=== PATIENT | female | born 1995 | race Caucasian/White ===

== ENCOUNTER 2021-09-02 23:41 | Emergency (ER) | payer BC ==
[2021-09-03 00:06] VITALS: BP 123/84; PULSE 82
[2021-09-03] MEDS: Amoxicillin 500 MG Cap PO ONE (01:01)
[2021-09-03] MEDS: Acetaminophen/HYDROcodone 325-5 MG Tab PO ONE (01:01)
== END 2021-09-03 01:09 | disposition home or self-care (01) ==
LOC: JD.ED 23:41
DX: K02.9 Dental caries, unspecified (principal)
CPT/HCPCS: 99282; A9270; 99283

== ENCOUNTER 2021-09-10 13:51 | Emergency (ER) | payer SELFPAY ==
[2021-09-10 14:35] VITALS: BP 125/69; PULSE 94
[2021-09-10] MEDS ORDERED: Ketorolac 30 MG/ML SDV IVPUSH ONE (15:07)
[2021-09-10] MEDS ORDERED: diphenhydrAMINE 50 MG/ML SDV IVPUSH ONE (15:07)
[2021-09-10] MEDS ORDERED: Metoclopramide 10 MG/2 ML SDV IVPUSH ONE (15:07)
[2021-09-10] MEDS ORDERED: Sodium Chloride 0.9% 1,000 ML IV ONE (15:07)
[2021-09-10] MEDS ORDERED: Penicillin V Potassium 500 MG Tab PO STA (16:37)
== END 2021-09-10 17:55 | disposition home or self-care (01) ==
LOC: JD.ED 13:51
DX: G43.909 Migraine, unspecified, not intractable, without status migrainosus (principal); K02.9 Dental caries, unspecified
CPT/HCPCS: 96361; 96374; 96375; 99283; A9270; J1200; J1885; J2765; J7030

== ENCOUNTER 2021-09-29 07:06 | Emergency (ER) | payer OTHER ==
[2021-09-29 07:15] VITALS: BP 123/86; PULSE 68
[2021-09-29] MEDS ORDERED: Lidocaine 1% 10 ML MDV ONE (07:28)
[2021-09-29] MEDS ORDERED: Lidocaine 1% 10 ML MDV INJECT ONE (07:36)
[2021-09-29] MEDS ORDERED: Diphtheria,Pertussis(Acell),Tetanus Vaccine 0.5 ML Syringe IM ONE (07:36)
== END 2021-09-29 08:03 | disposition home or self-care (01) ==
LOC: JD.ED 07:06
DX: S61.412A Laceration without foreign body of left hand, initial encounter (principal); F17.210 Nicotine dependence, cigarettes, uncomplicated; Z23 Encounter for immunization; W26.8XXA Contact with other sharp object(s), not elsewhere classified, initial encounter; Y99.0 Civilian activity done for income or pay
CPT/HCPCS: 12001; 90471; 90715; 99282-25

== ENCOUNTER 2021-10-03 06:52 | Emergency (ER) | payer BC, OTHER ==
[2021-10-03 07:39] VITALS: BP 114/73; PULSE 73
== END 2021-10-03 08:35 | disposition home or self-care (01) ==
LOC: JD.ED 06:52
DX: K02.9 Dental caries, unspecified (principal); K00.7 Teething syndrome
CPT/HCPCS: 99282; 99283

== ENCOUNTER 2021-10-06 05:17 | Emergency (ER) | payer BC ==
[2021-10-06 05:30] VITALS: BP 120/90; PULSE 85
[2021-10-06] MEDS ORDERED: Ondansetron 4 MG Tab.DIS PO ONE (05:57)
== END 2021-10-06 07:04 | disposition home or self-care (01) ==
LOC: JD.ED 05:17
DX: K02.9 Dental caries, unspecified (principal); R11.2 Nausea with vomiting, unspecified; F17.210 Nicotine dependence, cigarettes, uncomplicated; Z79.899 Other long term (current) drug therapy; Z86.16 Personal history of COVID-19
CPT/HCPCS: 99283; A9270; 99282

== ENCOUNTER 2021-10-08 17:20 | Emergency (ER) | payer SELFPAY ==
[2021-10-08 18:12] VITALS: BP 121/77; PULSE 70
[2021-10-08] MEDS ORDERED: HYDROmorphone 1 MG/ML Syringe IM ONE (18:26)
== END 2021-10-08 18:50 | disposition home or self-care (01) ==
LOC: JD.ED 17:20
DX: K02.62 Dental caries on smooth surface penetrating into dentin (principal); F17.210 Nicotine dependence, cigarettes, uncomplicated; Z88.8 Allergy status to other drugs, medicaments and biological substances; Z79.899 Other long term (current) drug therapy; Z86.16 Personal history of COVID-19
CPT/HCPCS: 96372; 99282; J1170

== ENCOUNTER 2021-12-04 19:36 | Emergency (ER) | payer SELFPAY ==
[2021-12-04 19:58] VITALS: BP 128/75; PULSE 81
[2021-12-04] MEDS ORDERED: Orphenadrine 100 MG Tab.ER PO STA (20:29)
[2021-12-04] MEDS ORDERED: Ibuprofen 600 MG Tab PO ONE (20:29)
== END 2021-12-04 20:50 | disposition home or self-care (01) ==
LOC: JD.ED 19:36
DX: M62.830 Muscle spasm of back (principal); F17.210 Nicotine dependence, cigarettes, uncomplicated; Z88.8 Allergy status to other drugs, medicaments and biological substances; Z86.16 Personal history of COVID-19
CPT/HCPCS: 99283; A9270

== ENCOUNTER 2021-12-20 06:59 | Emergency (ER) | payer BC ==
[2021-12-20] MEDS ORDERED: HYDROmorphone 1 MG/ML Syringe IM ONE (08:05)
[2021-12-20] MEDS ORDERED: Promethazine 25 MG/ML SDV IM ONE (08:06)
[2021-12-20 08:38] VITALS: BP 133/80; PULSE 72
== END 2021-12-20 09:45 | disposition home or self-care (01) ==
LOC: JD.ED 06:59
DX: K04.7 Periapical abscess without sinus (principal); Z72.0 Tobacco use; Z88.8 Allergy status to other drugs, medicaments and biological substances; Z86.16 Personal history of COVID-19
CPT/HCPCS: 96372; 99282; J1170; J2550

== ENCOUNTER 2021-12-22 02:02 | Emergency (ER) | payer BC ==
[2021-12-22 02:12] VITALS: BP 147/89; PULSE 74
[2021-12-22] MEDS ORDERED: Bupivacaine 0.25%/EPINEPHrine 1:200,000 10 ML SDV INJECT ONE (02:57)
[2021-12-22] MEDS ORDERED: Bupivacaine 0.5% 10 ML SDV ONE (03:03)
[2021-12-22] MEDS ORDERED: Bupivacaine 0.5% 10 ML SDV INJECT ONE (03:12)
== END 2021-12-22 04:05 | disposition home or self-care (01) ==
LOC: JD.ED 02:02
DX: K08.89 Other specified disorders of teeth and supporting structures (principal); Z88.8 Allergy status to other drugs, medicaments and biological substances; Z86.16 Personal history of COVID-19
CPT/HCPCS: 64400; 99282-25; J3490

== ENCOUNTER 2022-02-28 16:59 | Emergency (ER) | payer BC ==
[2022-02-28] MEDS ORDERED: Lidocaine 1% 5 ML VIAL INJECT ONE (17:37)
[2022-02-28] MEDS ORDERED: Lidocaine 1% 10 ML MDV ONE (17:40)
[2022-02-28] MEDS ORDERED: Lidocaine 1% 10 ML MDV INJECT ONE (17:43)
[2022-02-28 18:39] VITALS: BP 121/75; PULSE 62
== END 2022-02-28 18:15 | disposition home or self-care (01) ==
LOC: JD.ED 16:59
DX: K04.7 Periapical abscess without sinus (principal); K02.9 Dental caries, unspecified; F17.210 Nicotine dependence, cigarettes, uncomplicated; Z88.8 Allergy status to other drugs, medicaments and biological substances; Z86.16 Personal history of COVID-19
CPT/HCPCS: 64400; 99282-25; J3490

== ENCOUNTER 2022-03-01 16:10 | Emergency (ER) | payer BC ==
[2022-03-01 16:39] VITALS: BP 125/77; PULSE 63
[2022-03-01] MEDS ORDERED: HYDROmorphone 1 MG/ML Syringe IM ONE (17:18)
== END 2022-03-01 17:54 | disposition home or self-care (01) ==
LOC: JD.ED 16:10
DX: K08.89 Other specified disorders of teeth and supporting structures (principal); F17.210 Nicotine dependence, cigarettes, uncomplicated; Z88.8 Allergy status to other drugs, medicaments and biological substances; Z86.16 Personal history of COVID-19
CPT/HCPCS: 96372; 99282; J1170

== ENCOUNTER 2022-03-21 14:36 | Emergency (ER) | payer SELFPAY ==
[2022-03-21 14:54] VITALS: BP 119/66; PULSE 78
[2022-03-21] MEDS ORDERED: Cyclobenzaprine 10 MG Tab PO ONE (15:24)
== END 2022-03-21 15:36 | disposition home or self-care (01) ==
LOC: JD.ED 14:36
DX: M62.830 Muscle spasm of back (principal); Z86.16 Personal history of COVID-19; Z88.8 Allergy status to other drugs, medicaments and biological substances; W00.0XXA Fall on same level due to ice and snow, initial encounter
CPT/HCPCS: 99283; A9270

== ENCOUNTER 2022-03-23 20:20 | Emergency (ER) | payer SELFPAY ==
[2022-03-23 20:38] VITALS: BP 136/79; PULSE 78
[2022-03-23] MEDS ORDERED: HYDROmorphone 1 MG/ML Syringe IM ONE (20:43)
== END 2022-03-23 21:30 | disposition home or self-care (01) ==
LOC: JD.ED 20:20
DX: K08.89 Other specified disorders of teeth and supporting structures (principal); F17.210 Nicotine dependence, cigarettes, uncomplicated; Z88.8 Allergy status to other drugs, medicaments and biological substances; Z86.16 Personal history of COVID-19
CPT/HCPCS: 96372; 99282; J1170

== ENCOUNTER 2022-03-25 17:25 | Emergency (ER) | payer SELFPAY ==
[2022-03-25 17:33] VITALS: BP 139/75; PULSE 70
[2022-03-25] MEDS ORDERED: HYDROmorphone 1 MG/ML Syringe IM ONE (18:18)
[2022-03-25] MEDS ORDERED: Promethazine 25 MG/ML SDV IM ONE (18:18)
== END 2022-03-25 19:20 | disposition home or self-care (01) ==
LOC: JD.ED 17:25
DX: K08.89 Other specified disorders of teeth and supporting structures (principal); Z88.8 Allergy status to other drugs, medicaments and biological substances; Z86.16 Personal history of COVID-19
CPT/HCPCS: 96372; 99282; J1170; J2550

== ENCOUNTER 2022-04-14 00:53 | Emergency (ER) | payer SELFPAY ==
[2022-04-14] MEDS ORDERED: Amoxicillin/Clavulanate K 500-125 MG Tab PO ONE (01:44)
[2022-04-14] MEDS ORDERED: Ondansetron 4 MG Tab.DIS PO ONE (01:44)
[2022-04-14] MEDS ORDERED: Acetaminophen/oxyCODONE 325-5 MG Tab PO ONE (01:44)
[2022-04-14 02:24] VITALS: BP 109/71; PULSE 90
== END 2022-04-14 02:22 | disposition home or self-care (01) ==
LOC: JD.ED 00:53
DX: K02.9 Dental caries, unspecified (principal); Z72.0 Tobacco use; Z88.8 Allergy status to other drugs, medicaments and biological substances; Z79.899 Other long term (current) drug therapy
CPT/HCPCS: 99282; A9270

== ENCOUNTER 2022-04-15 12:23 | Emergency (ER) | payer SELFPAY ==
[2022-04-15] MEDS ORDERED: Metoclopramide 10 MG/2 ML SDV IM ONE (14:17)
[2022-04-15] MEDS ORDERED: Ketorolac 60 MG/2 ML SDV IM ONE (14:17)
[2022-04-15] MEDS ORDERED: HYDROmorphone 1 MG/ML Syringe IM ONE (14:17)
[2022-04-15] MEDS ORDERED: diphenhydrAMINE 50 MG/ML SDV IM ONE (14:18)
[2022-04-15 14:40] VITALS: BP 113/61; PULSE 60
== END 2022-04-15 14:40 | disposition home or self-care (01) ==
LOC: JD.ED 12:23
DX: K02.9 Dental caries, unspecified (principal); G43.909 Migraine, unspecified, not intractable, without status migrainosus; K00.7 Teething syndrome; Z72.0 Tobacco use; Z86.16 Personal history of COVID-19; Z88.8 Allergy status to other drugs, medicaments and biological substances
CPT/HCPCS: 96372; 99283; J1170; J1200; J1885; J2765

== ENCOUNTER 2022-04-20 19:58 | Emergency (ER) | payer SELFPAY ==
[2022-04-20 20:15] VITALS: BP 143/66; PULSE 82
[2022-04-20] MEDS ORDERED: Acetaminophen/oxyCODONE 325-5 MG Tab PO ONE (20:43)
== END 2022-04-20 21:16 | disposition home or self-care (01) ==
LOC: JD.ED 19:58
DX: K02.9 Dental caries, unspecified (principal); Z86.16 Personal history of COVID-19; Z88.8 Allergy status to other drugs, medicaments and biological substances
CPT/HCPCS: 99282; A9270

== ENCOUNTER 2022-05-18 10:30 | Emergency (ER) | payer MEDICAID ==
[2022-05-18] MEDS ORDERED: Sodium Chloride 0.9% 10 ML Syringe FLUSH PRN (10:51)
[2022-05-18] MEDS ORDERED: Ondansetron 4 MG/2 ML SDV IVPUSH ONE (11:01)
[2022-05-18] MEDS ORDERED: Sodium Chloride 0.9% 1,000 ML IV STA (11:01)
[2022-05-18 13:58] VITALS: BP 106/66; PULSE 79
== END 2022-05-18 13:59 | disposition home or self-care (01) ==
LOC: JD.ED 10:30
DX: O21.9 Vomiting of pregnancy, unspecified (principal); Z88.8 Allergy status to other drugs, medicaments and biological substances; Z86.16 Personal history of COVID-19; Z3A.01 Less than 8 weeks gestation of pregnancy
CPT/HCPCS: 36415; 80053; 81001; 84702; 85025; 96361; 96374; 99284; J2405; J3490; J7030; 99283

== ENCOUNTER 2022-09-22 14:44 | Emergency (ER) | payer SELFPAY ==
[2022-09-22] MEDS ORDERED: Lidocaine 1% 10 ML MDV INJECT ONE (15:12)
[2022-09-22] MEDS ORDERED: Lidocaine 2% Viscous Solution 15 ML UD PO ONE (15:13)
[2022-09-22] MEDS ORDERED: Bupivacaine 0.5% 10 ML SDV INJECT ONE (15:40)
[2022-09-22 15:52] VITALS: BP 122/87; PULSE 78
== END 2022-09-22 15:45 | disposition home or self-care (01) ==
LOC: JD.ED 14:44
DX: O99.612 Diseases of the digestive system complicating pregnancy, second trimester (principal); K08.89 Other specified disorders of teeth and supporting structures; F17.210 Nicotine dependence, cigarettes, uncomplicated; Z86.16 Personal history of COVID-19; Z88.6 Allergy status to analgesic agent; Z3A.24 24 weeks gestation of pregnancy
CPT/HCPCS: 64400; 99283; J3490; 99282

== ENCOUNTER 2022-09-23 00:01 | Emergency (ER) | payer SELFPAY ==
[2022-09-23] MEDS ORDERED: Ondansetron 4 MG/2 ML SDV IVPUSH ONE (01:33)
[2022-09-23] MEDS ORDERED: Lactated Ringers 1,000 ML IV ONE (01:34)
[2022-09-23] MEDS ORDERED: Acetaminophen/oxyCODONE 325-5 MG Tab PO ONE (01:34)
[2022-09-23] MEDS ORDERED: Metoclopramide 10 MG/2 ML SDV IVPUSH ONE (03:08)
[2022-09-23] MEDS ORDERED: diphenhydrAMINE 50 MG/ML SDV IVPUSH ONE (03:08)
[2022-09-23 03:43] VITALS: BP 107/66; PULSE 56
== END 2022-09-23 03:31 | disposition home or self-care (01) ==
LOC: JD.ED 00:01
DX: K04.7 Periapical abscess without sinus (principal); E86.0 Dehydration; F17.210 Nicotine dependence, cigarettes, uncomplicated; Z86.16 Personal history of COVID-19; Z79.899 Other long term (current) drug therapy; Z88.1 Allergy status to other antibiotic agents
CPT/HCPCS: 96361; 96374; 96375; 99283; A9270; J1200; J2405; J2765; J7120; 99282

== ENCOUNTER 2022-09-25 12:42 | Emergency (ER) | payer SELFPAY ==
[2022-09-25] MEDS ORDERED: Bupivacaine 0.5%/EPINEPHrine 1:200,000 30 ML SDV INJECT ONE (14:13)
[2022-09-25] MEDS ORDERED: Lidocaine 1% 10 ML MDV INJECT ONE (14:13)
[2022-09-25 18:34] VITALS: BP 122/56; PULSE 63
== END 2022-09-25 16:07 | disposition home or self-care (01) ==
LOC: JD.ED 12:42
DX: K08.89 Other specified disorders of teeth and supporting structures (principal); F17.210 Nicotine dependence, cigarettes, uncomplicated; Z88.6 Allergy status to analgesic agent; Z79.899 Other long term (current) drug therapy; Z86.16 Personal history of COVID-19
CPT/HCPCS: 64400; 99282; J3490

== ENCOUNTER 2022-11-28 12:51 | Emergency (ER) | payer SELFPAY ==
[2022-11-28 13:47] VITALS: BP 117/65; PULSE 73
== END 2022-11-28 13:45 | disposition home or self-care (01) ==
LOC: JD.ED 12:51
DX: K08.89 Other specified disorders of teeth and supporting structures (principal); Z88.8 Allergy status to other drugs, medicaments and biological substances
CPT/HCPCS: 99282

== ENCOUNTER 2022-12-18 22:15 | Inpatient (IN) | payer SELFPAY ==
[2022-12-18 23:33] LABS: BASOPHILS PERCENT AUTO 0.3 % (0.0-1.0); EOSINOPHILS ABSOLUTE AUTO 0.2 K/mm3 (0.0-0.4); EOSINOPHILS PERCENT AUTO 1.5 % (0.0-6.0); HEMATOCRIT 31.1 % (37.0-47.0); HEMOGLOBIN 10.3 gm/dl (12.0-16.0); IMMATURE GRAN ABSOLUTE AUTO 0.05 K/mm3 (0.00-0.05); IMMATURE GRAN PERCENT AUTO 0.5 % (0.0-0.4); LYMPHOCYTES PERCENT AUTO 19.7 % (24.0-44.0); MEAN CORPUSCULAR HEMOGLOBIN 29.1 pg (28.0-32.0); MEAN CORPUSCULAR HGB CONC 33.1 g/dl (32.0-36.0); MEAN CORPUSCULAR VOLUME 87.9 fl (83.0-99.0); MEAN PLATELET VOLUME 10.9 fl (9.4-12.3); MONOCYTES ABSOLUTE AUTO 0.8 K/mm3 (0.0-0.8); MONOCYTES PERCENT AUTO 7.5 % (0.0-8.0); NEUTROPHILS ABSOLUTE AUTO 7.1 K/mm3 (1.8-7.7); NEUTROPHILS PERCENT AUTO 70.5 % (41.0-71.0); PLATELET COUNT,PLT 203 K/mm3 (150-400); RED BLOOD CELL COUNT 3.54 M/mm3 (4.10-5.30)
[2022-12-18 23:51] LABS: PROTEIN CREATININE RATIO,URINE 1412.5 mg/g (0-149); PROTEIN,URINE RANDOM 79.1 mg/dL (0.0-11.8)
[2022-12-18 23:52] LABS: CREATININE 0.8 mg/dL (0.55-1.02); EST CRCL DRUG DOSING (CG) 95.05 mL/min; URIC ACID 7.2 mg/dL (2.6-6.0)
[2022-12-18] MEDS ORDERED: Ampicillin 2 GM in Sodium Chloride 0.9% 100 ML IV ONE (23:53)
[2022-12-18] MEDS ORDERED: Nalbuphine HCl 10 MG/ 1ML Amp IVPUSH PRN (23:53)
[2022-12-18] MEDS ORDERED: Ondansetron 4 MG/2 ML SDV IVPUSH PRN (23:53)
[2022-12-18] MEDS ORDERED: Lidocaine 1% 50 ML MDV INJECT PRN (23:53)
[2022-12-18] MEDS ORDERED: Sodium Chloride 0.9% 10 ML Syringe FLUSH PRN (23:53)
[2022-12-19] MEDS ORDERED: Bupivacaine 0.25% 10 ML SDV ONE
[2022-12-19] MEDS ORDERED: Lidocaine 1% 10 ML MDV ONE
[2022-12-19] MEDS: Lactated Ringers 1,000 ML IV SCH ×3 (00:18→01:49)
[2022-12-19] MEDS ORDERED: ePHEDrine 50 MG/ML SDV IVPUSH PRN (00:45)
[2022-12-19] MEDS ORDERED: fentaNYL 100 MCG/2 ML SDV EPIDUR PRN (00:45)
[2022-12-19] MEDS ORDERED: diphenhydrAMINE 50 MG/ML SDV IVPUSH PRN (00:45)
[2022-12-19] MEDS ORDERED: Bupivacaine/fentaNYL/NS 100 ML Bag EPIDUR PRN (00:45)
[2022-12-19] MEDS ORDERED: fentaNYL 100 MCG/2 ML SDV ONE ×2 (00:48→14:41)
[2022-12-19] MEDS ORDERED: Ampicillin 1 GM in Sodium Chloride 0.9% 100 ML IV SCH (04:00)
[2022-12-19] MEDS ORDERED: Oxytocin/Lactated Ringers 30 UNIT/500 ML BAG IV SCH (04:00)
[2022-12-19] MEDS ORDERED: Witch Hazel Medicated Pads 40/Jar TOP PRN (06:58)
[2022-12-19] MEDS ORDERED: Benzocaine/Menthol 20%-0.5% Spray 78 GM Cannister TOP PRN (06:58)
[2022-12-19] MEDS ORDERED: Sodium Chloride 0.9% 10 ML Syringe FLUSH SCH (09:00)
[2022-12-19] MEDS: Acetaminophen 325 MG Tab PO PRN ×2 (11:12→15:23)
[2022-12-19] MEDS: Ibuprofen 600 MG Tab PO PRN ×2 (11:12→21:34)
[2022-12-19] MEDS: Carboprost Tromethamine 250 MCG/1 mL Vial IM ONE ×2 (14:08→17:10)
[2022-12-19] MEDS ORDERED: fentaNYL 100 MCG/2 ML SDV IVPUSH ONE (14:40)
[2022-12-19] MEDS ORDERED: Tranexamic Acid 1,000 MG/10 ML Vial IV ONE (14:52)
[2022-12-19] MEDS ORDERED: Misoprostol 200 MCG Tab PO STA (14:52)
[2022-12-19] MEDS ORDERED: ceFAZolin 2 GM in Sodium Chloride 0.9% 50 ML IV ONE (14:53)
[2022-12-19] MEDS ORDERED: Misoprostol 200 MCG Tab ONE (14:58)
[2022-12-19] MEDS ORDERED: Loperamide 2 MG Cap PO ONE (15:11)
[2022-12-19 15:16] LABS: HEMATOCRIT 24.5 % (37.0-47.0); HEMOGLOBIN 8.2 gm/dl (12.0-16.0); MEAN CORPUSCULAR HEMOGLOBIN 29.1 pg (28.0-32.0); MEAN CORPUSCULAR HGB CONC 33.5 g/dl (32.0-36.0); MEAN CORPUSCULAR VOLUME 86.9 fl (83.0-99.0); PLATELET COUNT,PLT 195 K/mm3 (150-400); RED BLOOD CELL COUNT 2.82 M/mm3 (4.10-5.30); WHITE BLOOD CELL COUNT,WBC 13.29 K/mm3 (3.9-11.3)
[2022-12-19] MEDS ORDERED: Carboprost Tromethamine 250 MCG/1 mL Vial IM ONE (16:49)
[2022-12-19] MEDS ORDERED: Acetaminophen/oxyCODONE 325-5 MG Tab PO PRN (18:47)
[2022-12-19] MEDS: Acetaminophen/oxyCODONE 325-5 MG Tab PO PRN (19:04)
[2022-12-19] MEDS ORDERED: Ondansetron 4 MG/2 ML SDV IVPUSH PRN (20:03)
[2022-12-20] MEDS: Acetaminophen/oxyCODONE 325-5 MG Tab PO PRN ×2 (00:12→06:37)
[2022-12-20] MEDS: Ibuprofen 600 MG Tab PO PRN ×3 (03:09→19:08)
[2022-12-20] MEDS: Citalopram 20 MG Tab PO SCH (10:40)
[2022-12-20] MEDS: Gabapentin 100 MG Cap PO SCH (10:40)
[2022-12-20] MEDS: Acetaminophen 325 MG Tab PO PRN (19:09)
[2022-12-21] MEDS: Ibuprofen 600 MG Tab PO PRN ×2 (00:58→06:45)
[2022-12-21] MEDS: Acetaminophen 325 MG Tab PO PRN (00:59)
[2022-12-21 10:50] VITALS: BP 122/77; PULSE 63
[2022-12-21] MEDS: Citalopram 20 MG Tab PO SCH (10:55)
[2022-12-21] MEDS: Gabapentin 100 MG Cap PO SCH (10:56)
== END 2022-12-21 10:40 | disposition home or self-care (01) | DRG 806 ==
LOC: JD.OBCHECK 22:15 → JD.OB 22:23 → JD.OBCHECK 23:53 → JD.OB 12-19 00:29 → OBSVTOIN 12-19 05:06 → JD.OB 12-19 05:07
PROVIDERS: ADMIT Obstetrics & Gynecology; ATTEND Obstetrics & Gynecology
PROC: 10E0XZZ Delivery of Products of Conception, External Approach (ICD-10-PCS; principal; 2022-12-19)
PROC: 0HQ9XZZ Repair Perineum Skin, External Approach (ICD-10-PCS; 2022-12-19)
PROC: 3E0R3BZ Introduction of Anesthetic Agent into Spinal Canal, Percutaneous Approach (ICD-10-PCS; 2022-12-19)
PROC: 00HU33Z Insertion of Infusion Device into Spinal Canal, Percutaneous Approach (ICD-10-PCS; 2022-12-19)
DX: O42.02 Full-term premature rupture of membranes, onset of labor within 24 hours of rupture (principal); O72.1 Other immediate postpartum hemorrhage; Z37.0 Single live birth; O14.94 Unspecified pre-eclampsia, complicating childbirth; O99.824 Streptococcus B carrier state complicating childbirth; O77.0 Labor and delivery complicated by meconium in amniotic fluid; O69.81X0 Labor and delivery complicated by cord around neck, without compression, not applicable or unspecified; O70.0 First degree perineal laceration during delivery; Z3A.37 37 weeks gestation of pregnancy; Z88.8 Allergy status to other drugs, medicaments and biological substances; Z79.2 Long term (current) use of antibiotics; Z86.16 Personal history of COVID-19; Z98.890 Other specified postprocedural states
CPT/HCPCS: 36415; 51701; 51702; 59025; 59409; 82565; 82570; 83615; 84112; 84156; 84450; 84460; 84520; 84550; 85025; 85027; 86592; 86850; 86900; 86901; A9270-GY; J0290; J0690; J2405; J3010; J3490; J7120; J7999

== ENCOUNTER 2022-12-24 19:49 | Emergency (ER) | payer SELFPAY ==
[2022-12-24] MEDS ORDERED: Ketorolac 30 MG/ML SDV IM ONE (20:19)
[2022-12-24] MEDS ORDERED: Acetaminophen/HYDROcodone 325-5 MG Tab PO ONE (21:50)
[2022-12-24 22:31] VITALS: BP 146/78; PULSE 65
== END 2022-12-24 22:46 | disposition home or self-care (01) ==
LOC: JD.ED 19:49
DX: O90.89 Other complications of the puerperium, not elsewhere classified (principal); M54.50 Low back pain, unspecified; Z86.16 Personal history of COVID-19; Z88.6 Allergy status to analgesic agent
CPT/HCPCS: 96372; 99283; A9270; J1885; 99284

== ENCOUNTER 2022-12-26 13:16 | Emergency (ER) | payer SELFPAY ==
[2022-12-26 14:36] LABS: BASOPHILS ABSOLUTE AUTO 0.1 K/mm3 (0.0-0.2); BASOPHILS PERCENT AUTO 0.7 % (0.0-1.0); EOSINOPHILS ABSOLUTE AUTO 0.4 K/mm3 (0.0-0.4); HEMATOCRIT 19.2 % (37.0-47.0); IMMATURE GRAN ABSOLUTE AUTO 0.32 K/mm3 (0.00-0.05); IMMATURE GRAN PERCENT AUTO 3.7 % (0.0-0.4); LYMPHOCYTES ABSOLUTE AUTO 1.6 K/mm3 (1.0-4.8); LYMPHOCYTES PERCENT AUTO 18.9 % (24.0-44.0); MEAN CORPUSCULAR HEMOGLOBIN 28.9 pg (28.0-32.0); MEAN CORPUSCULAR HGB CONC 32.8 g/dl (32.0-36.0); MEAN CORPUSCULAR VOLUME 88.1 fl (83.0-99.0); MEAN PLATELET VOLUME 9.1 fl (9.4-12.3); MONOCYTES ABSOLUTE AUTO 0.5 K/mm3 (0.0-0.8); MONOCYTES PERCENT AUTO 5.8 % (0.0-8.0); NEUTROPHILS ABSOLUTE AUTO 5.7 K/mm3 (1.8-7.7); NEUTROPHILS PERCENT AUTO 65.9 % (41.0-71.0); RED BLOOD CELL COUNT 2.18 M/mm3 (4.10-5.30); WHITE BLOOD CELL COUNT,WBC 8.62 K/mm3 (3.9-11.3)
[2022-12-26] MEDS ORDERED: Ketorolac 30 MG/ML SDV IM ONE (14:46)
[2022-12-26] MEDS ORDERED: Cyclobenzaprine 10 MG Tab PO ONE ×2 (14:47→19:06)
[2022-12-26 14:50] LABS: HEMOGLOBIN 6.3 gm/dl (12.0-16.0); PLATELET COUNT,PLT 481 K/mm3 (150-400)
[2022-12-26] MEDS ORDERED: Sodium Chloride 0.9% 10 ML Syringe FLUSH ONE (15:01)
[2022-12-26 15:07] LABS: A/G RATIO 0.8 (1-2); ALBUMIN 2.5 g/dl (3.4-5.0); ANION GAP 13.3 (5-15); BILIRUBIN TOTAL 0.1 mg/dL (0.2-1.0); BUN/CREATININE RATIO 11.3 (14-18); CALCIUM 8.3 mg/dL (8.5-10.1); CREATININE 0.8 mg/dL (0.55-1.02); EST CRCL DRUG DOSING (CG) 95.05 mL/min; POTASSIUM,K 4.3 mEq/L (3.5-5.1); PROTEIN TOTAL,TP 5.8 g/dl (6.4-8.2)
[2022-12-26] MEDS ORDERED: Sodium Chloride 0.9% 1,000 ML IV SCH (15:15)
[2022-12-26] MEDS ORDERED: Acetaminophen 325 MG Tab PO ONE (15:36)
[2022-12-26 16:30] LABS: APPEARANCE,URINE CLEAR (Clear); BILIRUBIN,URINE NEGATIVE (Negative); COLOR,URINE LIGHT YELLOW (Yellow); GLUCOSE,URINE NEGATIVE (Negative); KETONES,URINE NEGATIVE (Negative); LEUKOCYTE ESTERASE,URINE 1+ (Negative); NITRITE,URINE NEGATIVE (Negative); OCCULT BLOOD,URINE 1+ (Negative); PH,URINE 7.5 (5.0-8.0); PROTEIN,URINE NEGATIVE (Negative); UROBILINOGEN,URINE 0.2 (0.2-1.0)
[2022-12-26] MEDS ORDERED: Sodium Chloride 0.9% 250 ML IV SCH (16:30)
[2022-12-26 16:38] LABS: SQUAMOUS EPITHELIAL CELLS,UR 0-5 /hpf (0-5); WBC,URINE 40-50 /hpf (0-5)
[2022-12-26 16:39] LABS: BACTERIA,URINE FEW /hpf (FEW); MUCUS,URINE FEW /hpf (FEW); RENAL EPITHELIAL CELLS,URINE 0-5 /hpf (0-5)
[2022-12-26 19:07] VITALS: BP 164/93; PULSE 46
[2022-12-26] MEDS ORDERED: Sulfamethoxazole/Trimethoprim 800-160 MG Tab PO ONE (19:18)
== END 2022-12-26 19:25 | disposition home or self-care (01) ==
LOC: JD.ED 13:16
DX: M62.830 Muscle spasm of back (principal); N30.01 Acute cystitis with hematuria; D62 Acute posthemorrhagic anemia; F17.210 Nicotine dependence, cigarettes, uncomplicated; Z86.16 Personal history of COVID-19; Z88.8 Allergy status to other drugs, medicaments and biological substances
CPT/HCPCS: 36415; 36430; 72100; 80053; 81001; 83735; 85025; 86850; 86900; 86901; 86922; 87086; 96360; 96361; 99283; A9270; J3490; J7030; J7050; P9016; 99284

== ENCOUNTER 2023-01-01 03:04 | Emergency (ER) | payer SELFPAY ==
[2023-01-01] MEDS ORDERED: Penicillin V Potassium 500 MG Tab PO STA (03:43)
[2023-01-01] MEDS ORDERED: Ibuprofen 600 MG Tab PO ONE (03:43)
[2023-01-01] MEDS ORDERED: Acetaminophen 325 MG Tab PO ONE (03:45)
[2023-01-01 03:57] VITALS: BP 111/64; PULSE 77
== END 2023-01-01 03:53 | disposition home or self-care (01) ==
LOC: JD.ED 03:04
DX: K08.89 Other specified disorders of teeth and supporting structures (principal); F17.210 Nicotine dependence, cigarettes, uncomplicated; Z86.16 Personal history of COVID-19; Z88.8 Allergy status to other drugs, medicaments and biological substances; Z79.899 Other long term (current) drug therapy
CPT/HCPCS: 99282; A9270

== ENCOUNTER 2023-01-01 11:46 | Emergency (ER) | payer SELFPAY ==
[2023-01-01] MEDS ORDERED: Acetaminophen/HYDROcodone 325-5 MG Tab PO ONE (12:12)
[2023-01-01 13:16] VITALS: BP 126/86; PULSE 90
== END 2023-01-01 13:03 | disposition home or self-care (01) ==
LOC: JD.ED 11:46
DX: K04.7 Periapical abscess without sinus (principal); K02.9 Dental caries, unspecified; F17.210 Nicotine dependence, cigarettes, uncomplicated; Z86.16 Personal history of COVID-19; Z88.6 Allergy status to analgesic agent; Z79.899 Other long term (current) drug therapy
CPT/HCPCS: 99282; A9270-GY

== ENCOUNTER 2023-02-25 20:27 | Emergency (ER) | payer SELFPAY ==
[2023-02-25 20:38] VITALS: BP 137/88; PULSE 91
[2023-02-25] MEDS ORDERED: Ketorolac 60 MG/2 ML SDV IM ONE (21:01)
== END 2023-02-25 21:12 | disposition home or self-care (01) ==
LOC: JD.ED 20:27
DX: K08.89 Other specified disorders of teeth and supporting structures (principal); Z86.16 Personal history of COVID-19; Z88.6 Allergy status to analgesic agent
CPT/HCPCS: 96372; 99282; J1885

== ENCOUNTER 2023-02-26 20:31 | Emergency (ER) | payer SELFPAY ==
[2023-02-26] MEDS ORDERED: Ketorolac 60 MG/2 ML SDV IM ONE (21:10)
[2023-02-26] MEDS ORDERED: cefTRIAXone 1 GM, Lidocaine 1% 2.1 ML IM ONE ×2 (21:10)
[2023-02-26 21:58] VITALS: BP 141/92; PULSE 65
== END 2023-02-26 21:37 | disposition home or self-care (01) ==
LOC: JD.ED 20:31
DX: K04.7 Periapical abscess without sinus (principal); Z86.16 Personal history of COVID-19; Z88.8 Allergy status to other drugs, medicaments and biological substances
CPT/HCPCS: 96372; 99282; J0696; J1885; J3490

== ENCOUNTER 2023-03-15 22:16 | Emergency (ER) | payer SELFPAY ==
[2023-03-15 22:27] VITALS: BP 144/89; PULSE 88
== END 2023-03-15 22:49 | disposition home or self-care (01) ==
LOC: JD.ED 22:16
DX: K08.89 Other specified disorders of teeth and supporting structures (principal); K02.9 Dental caries, unspecified; K04.7 Periapical abscess without sinus
CPT/HCPCS: 99282; 99283

== ENCOUNTER 2023-04-27 18:20 | Emergency (ER) | payer SELFPAY ==
[2023-04-27] MEDS: Ketorolac 30 MG/ML SDV IM ONE (19:38)
[2023-04-27] MEDS: Orphenadrine 60 MG/2 ML Inj IM ONE (19:39)
[2023-04-27 20:03] VITALS: BP 128/86; PULSE 86
== END 2023-04-27 20:03 | disposition home or self-care (01) ==
LOC: JD.ED 18:20
DX: M62.830 Muscle spasm of back (principal); F17.210 Nicotine dependence, cigarettes, uncomplicated; Z88.8 Allergy status to other drugs, medicaments and biological substances; Z79.899 Other long term (current) drug therapy; Z86.16 Personal history of COVID-19
CPT/HCPCS: 96372; 99283; J1885; J2360; 99282

== ENCOUNTER 2023-04-28 16:31 | Emergency (ER) | payer SELFPAY ==
[2023-04-28 16:51] VITALS: BP 137/75
[2023-04-28] MEDS: Acetaminophen/HYDROcodone 325-5 MG Tab PO ONE (17:17)
[2023-04-28 17:31] VITALS: PULSE 68
== END 2023-04-28 17:31 | disposition home or self-care (01) ==
LOC: JD.ED 16:31
DX: M54.6 Pain in thoracic spine (principal); Z86.16 Personal history of COVID-19; Z79.899 Other long term (current) drug therapy; Z88.6 Allergy status to analgesic agent
CPT/HCPCS: 99283; A9270

== ENCOUNTER 2023-08-22 23:25 | Emergency (ER) | payer SELFPAY ==
[2023-08-23 00:34] LABS: APPEARANCE,URINE CLEAR (Clear); BILIRUBIN,URINE NEGATIVE (Negative); COLOR,URINE YELLOW (Yellow); GLUCOSE,URINE NEGATIVE (Negative); KETONES,URINE TRACE (Negative); LEUKOCYTE ESTERASE,URINE TRACE (Negative); NITRITE,URINE NEGATIVE (Negative); OCCULT BLOOD,URINE 1+ (Negative); PROTEIN,URINE TRACE (Negative); UROBILINOGEN,URINE 0.2 (0.2-1.0)
[2023-08-23 00:43] LABS: BACTERIA,URINE MODERATE /hpf (FEW); MUCUS,URINE MANY /hpf (FEW)
[2023-08-23] MEDS: Dextrose 5%-Lactated Ringers 1,000 ML IV SCH (01:16)
[2023-08-23] MEDS: HYDROmorphone 1 MG/ML Syringe IVPUSH ONE ×2 (01:17→03:58)
[2023-08-23] MEDS: Metoclopramide 10 MG/2 ML SDV IVPUSH ONE (01:17)
[2023-08-23 01:26] LABS: BASOPHILS PERCENT AUTO 0.3 % (0.0-1.0); EOSINOPHILS PERCENT AUTO 0.2 % (0.0-6.0); HEMATOCRIT 38.1 % (37.0-47.0); HEMOGLOBIN 12.4 gm/dl (12.0-16.0); IMMATURE GRAN ABSOLUTE AUTO 0.03 K/mm3 (0.00-0.05); IMMATURE GRAN PERCENT AUTO 0.3 % (0.0-0.4); LYMPHOCYTES ABSOLUTE AUTO 2.5 K/mm3 (1.0-4.8); LYMPHOCYTES PERCENT AUTO 26.4 % (24.0-44.0); MEAN CORPUSCULAR HGB CONC 32.5 g/dl (32.0-36.0); MEAN PLATELET VOLUME 10.3 fl (9.4-12.3); MONOCYTES ABSOLUTE AUTO 0.5 K/mm3 (0.0-0.8); MONOCYTES PERCENT AUTO 4.8 % (0.0-8.0); NEUTROPHILS ABSOLUTE AUTO 6.4 K/mm3 (1.8-7.7); PLATELET COUNT,PLT 262 K/mm3 (150-400); RED BLOOD CELL COUNT 4.43 M/mm3 (4.10-5.30); WHITE BLOOD CELL COUNT,WBC 9.44 K/mm3 (3.9-11.3)
[2023-08-23 01:48] LABS: A/G RATIO 1.2 (1-2); ALANINE AMINOTRANSFERASE,ALT 19 U/L (14-59); ALBUMIN 3.8 g/dl (3.4-5.0); ALKALINE PHOSPHATASE 59 U/L (46-116); ANION GAP 14.6 (5-15); ASPARTATE AMNIOTRANSFERASE,AST 10 U/L (15-37); BILIRUBIN TOTAL 0.1 mg/dL (0.2-1.0); BLOOD UREA NITROGEN,BUN 13 mg/dL (7-18); BUN/CREATININE RATIO 14.4 (14-18); CARBON DIOXIDE,CO2 25 mEq/L (21-32); CHLORIDE,CL 111 mEq/L (98-107); CREATININE 0.9 mg/dL (0.55-1.02); EST CRCL DRUG DOSING (CG) 83.74 mL/min; ESTIMATED GFR 89 mL/min (>60); GLUCOSE RANDOM 93 mg/dL (70-99); LIPASE 50 U/L (16-77); MAGNESIUM 2.2 mg/dL (1.8-2.4); POTASSIUM,K 3.6 mEq/L (3.5-5.1); PROTEIN TOTAL,TP 6.9 g/dl (6.4-8.2); SODIUM,NA 147 mEq/L (136-145)
[2023-08-23 01:49] LABS: C-REACTIVE PROTEIN < 0.05 mg/dL (<0.30)
[2023-08-23 01:54] LABS: LACTIC ACID 0.5 mmol/L (0.4-2.0)
[2023-08-23] MEDS: LORazepam 2 MG/ML SDV IVPUSH ONE (03:58)
[2023-08-23] MEDS: Iopamidol 612 MG/ML 30 ML SDV IVPUSH ONE (04:03)
[2023-08-23] MEDS: Dicyclomine 10 MG Cap PO ONE (04:47)
[2023-08-23] MEDS: Magnesium Citrate Solution 296 ML Bottle PO ONE (04:47)
[2023-08-23 04:50] VITALS: BP 120/80; PULSE 80
== END 2023-08-23 04:51 | disposition home or self-care (01) ==
LOC: JD.ED 23:25
DX: N92.0 Excessive and frequent menstruation with regular cycle (principal); R10.30 Lower abdominal pain, unspecified; R11.2 Nausea with vomiting, unspecified; R19.7 Diarrhea, unspecified; F17.210 Nicotine dependence, cigarettes, uncomplicated; Z88.8 Allergy status to other drugs, medicaments and biological substances; Z79.899 Other long term (current) drug therapy; Z86.16 Personal history of COVID-19
CPT/HCPCS: 36415; 74177; 80053; 81001; 83605; 83690; 83735; 84703; 85025; 86140; 87086; 96361; 96374; 96375; 96376; 99284; A9270; J1170; J2060; J2765; J7121; Q9967

== ENCOUNTER 2023-08-23 13:38 | Emergency (ER) | payer SELFPAY ==
[2023-08-23] MEDS: Ketorolac 15 MG/ML SDV IVPUSH ONE (15:06)
[2023-08-23] MEDS: Sodium Chloride 0.9% 10 ML Syringe FLUSH PRN (15:08)
[2023-08-23 15:18] LABS: BASOPHILS PERCENT AUTO 0.3 % (0.0-1.0); EOSINOPHILS ABSOLUTE AUTO 0.1 K/mm3 (0.0-0.4); EOSINOPHILS PERCENT AUTO 0.8 % (0.0-6.0); HEMATOCRIT 36.8 % (37.0-47.0); IMMATURE GRAN ABSOLUTE AUTO 0.02 K/mm3 (0.00-0.05); IMMATURE GRAN PERCENT AUTO 0.3 % (0.0-0.4); LYMPHOCYTES ABSOLUTE AUTO 1.8 K/mm3 (1.0-4.8); MEAN CORPUSCULAR HEMOGLOBIN 27.7 pg (28.0-32.0); MEAN CORPUSCULAR HGB CONC 32.6 g/dl (32.0-36.0); MEAN PLATELET VOLUME 10.2 fl (9.4-12.3); MONOCYTES ABSOLUTE AUTO 0.3 K/mm3 (0.0-0.8); MONOCYTES PERCENT AUTO 4.9 % (0.0-8.0); NEUTROPHILS ABSOLUTE AUTO 3.9 K/mm3 (1.8-7.7); NEUTROPHILS PERCENT AUTO 64.7 % (41.0-71.0); PLATELET COUNT,PLT 241 K/mm3 (150-400); RED BLOOD CELL COUNT 4.33 M/mm3 (4.10-5.30)
[2023-08-23] MEDS: Sodium Chloride 0.9% 1,000 ML IV ONE (15:45)
[2023-08-23 15:50] LABS: A/G RATIO 1.2 (1-2); ALBUMIN 3.8 g/dl (3.4-5.0); ANION GAP 15.4 (5-15); BILIRUBIN TOTAL 0.3 mg/dL (0.2-1.0); BUN/CREATININE RATIO 13.8 (14-18); CALCIUM 8.8 mg/dL (8.5-10.1); CREATININE 0.8 mg/dL (0.55-1.02); EST CRCL DRUG DOSING (CG) 94.21 mL/min; POTASSIUM,K 3.4 mEq/L (3.5-5.1); PROTEIN TOTAL,TP 6.9 g/dl (6.4-8.2)
[2023-08-23 16:48] LABS: APPEARANCE,URINE SLT CLOUDY (Clear); BILIRUBIN,URINE NEGATIVE (Negative); COLOR,URINE PINK (Yellow); GLUCOSE,URINE NEGATIVE (Negative); KETONES,URINE NEGATIVE (Negative); LEUKOCYTE ESTERASE,URINE NEGATIVE (Negative); NITRITE,URINE NEGATIVE (Negative); OCCULT BLOOD,URINE 3+ (Negative); PROTEIN,URINE 1+ (Negative); UROBILINOGEN,URINE 0.2 (0.2-1.0)
[2023-08-23] MEDS: Famotidine 20 MG Tab PO ONE (16:50)
[2023-08-23] MEDS: Alum Hydrox/Mag Hydrox/Simeth 30 ML, Lidocaine 2% 15 ML PO ONE (16:50)
[2023-08-23 17:07] LABS: BACTERIA,URINE FEW /hpf (FEW); MUCUS,URINE FEW /hpf (FEW); RBC,URINE >100 /hpf (0-5); WBC,URINE 0-5 /hpf (0-5)
[2023-08-23 19:18] LABS: C. TRACHOMATIS BY PCR NOT DETECTED; N. GONORRHOEAE BY PCR NOT DETECTED
[2023-08-23 19:44] VITALS: BP 126/80; PULSE 80
== END 2023-08-23 19:47 | disposition home or self-care (01) ==
LOC: JD.ED 13:38
DX: N93.9 Abnormal uterine and vaginal bleeding, unspecified (principal); Z86.16 Personal history of COVID-19; Z79.899 Other long term (current) drug therapy; Z88.8 Allergy status to other drugs, medicaments and biological substances
CPT/HCPCS: 0352U; 36415; 76830; 80053; 81001; 83690; 83735; 85025; 87491; 87591; 96361; 96374; 99284; A9270; J1885; J3490; J7030

== ENCOUNTER 2023-08-24 17:52 | Emergency (ER) | payer SELFPAY ==
[2023-08-24 19:15] LABS: BASOPHILS PERCENT AUTO 0.3 % (0.0-1.0); EOSINOPHILS ABSOLUTE AUTO 0.1 K/mm3 (0.0-0.4); HEMATOCRIT 35.4 % (37.0-47.0); HEMOGLOBIN 11.7 gm/dl (12.0-16.0); IMMATURE GRAN ABSOLUTE AUTO 0.02 K/mm3 (0.00-0.05); IMMATURE GRAN PERCENT AUTO 0.3 % (0.0-0.4); LYMPHOCYTES ABSOLUTE AUTO 1.9 K/mm3 (1.0-4.8); LYMPHOCYTES PERCENT AUTO 31.6 % (24.0-44.0); MEAN CORPUSCULAR HEMOGLOBIN 28.3 pg (28.0-32.0); MEAN CORPUSCULAR HGB CONC 33.1 g/dl (32.0-36.0); MEAN CORPUSCULAR VOLUME 85.5 fl (83.0-99.0); MEAN PLATELET VOLUME 10.2 fl (9.4-12.3); MONOCYTES ABSOLUTE AUTO 0.4 K/mm3 (0.0-0.8); MONOCYTES PERCENT AUTO 6.8 % (0.0-8.0); NEUTROPHILS ABSOLUTE AUTO 3.5 K/mm3 (1.8-7.7); PLATELET COUNT,PLT 240 K/mm3 (150-400); RED BLOOD CELL COUNT 4.14 M/mm3 (4.10-5.30); WHITE BLOOD CELL COUNT,WBC 5.89 K/mm3 (3.9-11.3)
[2023-08-24 19:37] LABS: A/G RATIO 1.3 (1-2); ALBUMIN 3.7 g/dl (3.4-5.0); ANION GAP 13.9 (5-15); BILIRUBIN TOTAL 0.3 mg/dL (0.2-1.0); CALCIUM 8.9 mg/dL (8.5-10.1); CREATININE 0.8 mg/dL (0.55-1.02); EST CRCL DRUG DOSING (CG) 94.21 mL/min; POTASSIUM,K 3.9 mEq/L (3.5-5.1); PROTEIN TOTAL,TP 6.5 g/dl (6.4-8.2)
[2023-08-24] MEDS ORDERED: Naloxone 0.4 MG/ML SDV IVPUSH PRN (19:38)
[2023-08-24] MEDS: Morphine 2 MG/ML SYRINGE IM ONE (19:43)
[2023-08-24 20:17] VITALS: BP 120/78; PULSE 88
== END 2023-08-24 20:20 | disposition home or self-care (01) ==
LOC: JD.ED 17:52
DX: N94.6 Dysmenorrhea, unspecified (principal); N92.0 Excessive and frequent menstruation with regular cycle; F17.210 Nicotine dependence, cigarettes, uncomplicated; Z86.16 Personal history of COVID-19; Z79.899 Other long term (current) drug therapy; Z88.6 Allergy status to analgesic agent
CPT/HCPCS: 36415; 80053; 85025; 96372; 99284; J2270; 99283

== ENCOUNTER 2023-09-09 15:32 | Emergency (ER) | payer SELFPAY ==
[2023-09-09 15:55] VITALS: BP 129/67
[2023-09-09] MEDS: Naproxen 500 MG Tab PO ONE (16:58)
[2023-09-09 17:13] VITALS: PULSE 87
== END 2023-09-09 17:46 | disposition home or self-care (01) ==
LOC: JD.ED 15:32
DX: M54.50 Low back pain, unspecified (principal); K08.89 Other specified disorders of teeth and supporting structures; Z86.16 Personal history of COVID-19; Z79.899 Other long term (current) drug therapy; Z88.6 Allergy status to analgesic agent
CPT/HCPCS: 72110; 99283; A9270

== ENCOUNTER 2023-09-17 22:25 | Emergency (ER) | payer SELFPAY ==
[2023-09-17 22:53] VITALS: BP 120/81; PULSE 81
[2023-09-17] MEDS ORDERED: Acetaminophen 325 MG Tab PO ONE (23:50)
== END 2023-09-17 23:55 | disposition left against medical advice (07) ==
LOC: JD.ED 22:25
DX: R10.32 Left lower quadrant pain (principal); F17.210 Nicotine dependence, cigarettes, uncomplicated; Z88.8 Allergy status to other drugs, medicaments and biological substances; Z79.899 Other long term (current) drug therapy; Z86.16 Personal history of COVID-19; Z53.29 Procedure and treatment not carried out because of patient's decision for other reasons
CPT/HCPCS: 99283

== ENCOUNTER 2023-12-01 10:29 | Emergency (ER) | payer MEDICAID ==
[2023-12-01] MEDS: HYDROmorphone 1 MG/ML Syringe IM ONE (11:03)
[2023-12-01 11:40] VITALS: BP 130/73; PULSE 86
== END 2023-12-01 11:23 | disposition home or self-care (01) ==
LOC: JD.ED 10:29
DX: S02.5XXA Fracture of tooth (traumatic), initial encounter for closed fracture (principal); K04.7 Periapical abscess without sinus; F17.210 Nicotine dependence, cigarettes, uncomplicated; Z88.8 Allergy status to other drugs, medicaments and biological substances; Z79.899 Other long term (current) drug therapy; X58.XXXA Exposure to other specified factors, initial encounter
CPT/HCPCS: 96372; 99282; J1171; 99283

== ENCOUNTER 2023-12-04 13:03 | Emergency (ER) | payer MEDICAID ==
[2023-12-04] MEDS: Acetaminophen/oxyCODONE 325-5 MG Tab PO ONE (15:44)
[2023-12-04 15:53] VITALS: BP 121/78; PULSE 72
== END 2023-12-04 15:53 | disposition home or self-care (01) ==
LOC: JD.ED 13:03
DX: K04.7 Periapical abscess without sinus (principal); F17.210 Nicotine dependence, cigarettes, uncomplicated; Z86.16 Personal history of COVID-19; Z79.899 Other long term (current) drug therapy; Z88.6 Allergy status to analgesic agent
CPT/HCPCS: 99282; A9270

== ENCOUNTER 2023-12-23 18:06 | Emergency (ER) | payer MEDICAID ==
[2023-12-23] MEDS ORDERED: Sodium Chloride 0.9% 10 ML Syringe FLUSH PRN (18:33)
[2023-12-23] MEDS: Sodium Chloride 0.9% 1,000 ML IV ONE (18:39)
[2023-12-23 18:43] LABS: BASOPHILS PERCENT AUTO 0.6 % (0.0-1.0); EOSINOPHILS ABSOLUTE AUTO 0.3 K/mm3 (0.0-0.4); EOSINOPHILS PERCENT AUTO 5.9 % (0.0-6.0); HEMOGLOBIN 13.6 gm/dl (12.0-16.0); IMMATURE GRAN ABSOLUTE AUTO 0.01 K/mm3 (0.00-0.05); IMMATURE GRAN PERCENT AUTO 0.2 % (0.0-0.4); LYMPHOCYTES ABSOLUTE AUTO 1.8 K/mm3 (1.0-4.8); LYMPHOCYTES PERCENT AUTO 34.5 % (24.0-44.0); MEAN CORPUSCULAR HEMOGLOBIN 28.3 pg (28.0-32.0); MEAN CORPUSCULAR HGB CONC 33.2 g/dl (32.0-36.0); MEAN CORPUSCULAR VOLUME 85.2 fl (83.0-99.0); MEAN PLATELET VOLUME 10.1 fl (9.4-12.3); MONOCYTES ABSOLUTE AUTO 0.4 K/mm3 (0.0-0.8); MONOCYTES PERCENT AUTO 7.2 % (0.0-8.0); NEUTROPHILS ABSOLUTE AUTO 2.7 K/mm3 (1.8-7.7); NEUTROPHILS PERCENT AUTO 51.6 % (41.0-71.0); PLATELET COUNT,PLT 226 K/mm3 (150-400); RED BLOOD CELL COUNT 4.81 M/mm3 (4.10-5.30); WHITE BLOOD CELL COUNT,WBC 5.28 K/mm3 (3.9-11.3)
[2023-12-23 19:08] LABS: A/G RATIO 1.1 (1-2); ALBUMIN 3.5 g/dl (3.4-5.0); ANION GAP 13.7 (5-15); BILIRUBIN TOTAL 0.2 mg/dL (0.2-1.0); BUN/CREATININE RATIO 15.6 (14-18); CALCIUM 8.3 mg/dL (8.5-10.1); CREATININE 0.9 mg/dL (0.55-1.02); EST CRCL DRUG DOSING (CG) 83.74 mL/min; MAGNESIUM 1.9 mg/dL (1.8-2.4); POTASSIUM,K 3.7 mEq/L (3.5-5.1); PROTEIN TOTAL,TP 6.6 g/dl (6.4-8.2); TSH 3.172 uIU/mL (0.358-3.74)
[2023-12-23 22:18] VITALS: BP 130/80; PULSE 74
[2023-12-26 19:42] LABS: INTACT PTH 115 pg/mL (15-65)
== END 2023-12-23 22:16 | disposition home or self-care (01) ==
LOC: JD.ED 18:06
DX: R00.2 Palpitations (principal); E83.51 Hypocalcemia; F17.210 Nicotine dependence, cigarettes, uncomplicated; Z79.899 Other long term (current) drug therapy; Z88.6 Allergy status to analgesic agent; Z86.16 Personal history of COVID-19
CPT/HCPCS: 36415; 71045; 80053; 82306; 82607; 83735; 83970; 84443; 84484; 84703; 85025; 93005; 96365; 99285; J3475; J7030

== ENCOUNTER 2023-12-31 21:07 | Emergency (ER) | payer MEDICAID ==
[2023-12-31 21:16] VITALS: BP 151/110; PULSE 85
[2023-12-31 22:12] LABS: BASOPHILS PERCENT AUTO 0.5 % (0.0-1.0); EOSINOPHILS ABSOLUTE AUTO 0.4 K/mm3 (0.0-0.4); EOSINOPHILS PERCENT AUTO 6.6 % (0.0-6.0); HEMATOCRIT 35.1 % (37.0-47.0); HEMOGLOBIN 11.8 gm/dl (12.0-16.0); IMMATURE GRAN ABSOLUTE AUTO 0.02 K/mm3 (0.00-0.05); IMMATURE GRAN PERCENT AUTO 0.3 % (0.0-0.4); LYMPHOCYTES ABSOLUTE AUTO 2.5 K/mm3 (1.0-4.8); LYMPHOCYTES PERCENT AUTO 38.8 % (24.0-44.0); MEAN CORPUSCULAR HEMOGLOBIN 28.7 pg (28.0-32.0); MEAN CORPUSCULAR HGB CONC 33.6 g/dl (32.0-36.0); MEAN CORPUSCULAR VOLUME 85.4 fl (83.0-99.0); MEAN PLATELET VOLUME 9.4 fl (9.4-12.3); MONOCYTES ABSOLUTE AUTO 0.6 K/mm3 (0.0-0.8); NEUTROPHILS ABSOLUTE AUTO 2.9 K/mm3 (1.8-7.7); NEUTROPHILS PERCENT AUTO 44.8 % (41.0-71.0); PLATELET COUNT,PLT 218 K/mm3 (150-400); RED BLOOD CELL COUNT 4.11 M/mm3 (4.10-5.30); WHITE BLOOD CELL COUNT,WBC 6.54 K/mm3 (3.9-11.3)
[2023-12-31 22:34] LABS: A/G RATIO 1.2 (1-2); ALANINE AMINOTRANSFERASE,ALT 19 U/L (14-59); ALBUMIN 3.3 g/dl (3.4-5.0); ALKALINE PHOSPHATASE 44 U/L (46-116); ASPARTATE AMNIOTRANSFERASE,AST 16 U/L (15-37); BILIRUBIN TOTAL 0.1 mg/dL (0.2-1.0); BLOOD UREA NITROGEN,BUN 15 mg/dL (7-18); BUN/CREATININE RATIO 18.8 (14-18); CALCIUM 8.9 mg/dL (8.5-10.1); CARBON DIOXIDE,CO2 27 mEq/L (21-32); CHLORIDE,CL 106 mEq/L (98-107); CREATININE 0.8 mg/dL (0.55-1.02); ESTIMATED GFR 103 mL/min (>60); GLUCOSE RANDOM 87 mg/dL (70-99); PROTEIN TOTAL,TP 6.1 g/dl (6.4-8.2); SODIUM,NA 139 mEq/L (136-145)
== END 2023-12-31 22:50 | disposition home or self-care (01) ==
LOC: JD.ED 21:07
DX: S02.5XXA Fracture of tooth (traumatic), initial encounter for closed fracture (principal); Z88.8 Allergy status to other drugs, medicaments and biological substances; Z79.899 Other long term (current) drug therapy; Z86.16 Personal history of COVID-19; X58.XXXA Exposure to other specified factors, initial encounter
CPT/HCPCS: 36415; 80053; 85025; 99283

== ENCOUNTER 2024-01-13 04:49 | Emergency (ER) | payer MEDICAID ==
[2024-01-13 05:04] VITALS: BP 141/83; PULSE 91
[2024-01-13] MEDS: Amoxicillin/Clavulanate K 875-125 MG Tab PO ONE (05:56)
== END 2024-01-13 06:02 | disposition home or self-care (01) ==
LOC: JD.ED 04:49
DX: K08.89 Other specified disorders of teeth and supporting structures (principal); F17.210 Nicotine dependence, cigarettes, uncomplicated; Z88.8 Allergy status to other drugs, medicaments and biological substances; Z79.899 Other long term (current) drug therapy; Z86.16 Personal history of COVID-19
CPT/HCPCS: 99282; A9270

== ENCOUNTER 2024-01-21 14:26 | Emergency (ER) | payer MEDICAID ==
[2024-01-21] MEDS: Sodium Chloride 0.9% 1,000 ML IV STA (15:15)
[2024-01-21] MEDS: Sodium Chloride 0.9% 10 ML Syringe FLUSH PRN (15:15)
[2024-01-21 15:18] LABS: BASOPHILS PERCENT AUTO 0.4 % (0.0-1.0); EOSINOPHILS ABSOLUTE AUTO 0.1 K/mm3 (0.0-0.4); EOSINOPHILS PERCENT AUTO 2.6 % (0.0-6.0); HEMATOCRIT 38.1 % (37.0-47.0); HEMOGLOBIN 12.9 gm/dl (12.0-16.0); IMMATURE GRAN ABSOLUTE AUTO 0.01 K/mm3 (0.00-0.05); IMMATURE GRAN PERCENT AUTO 0.2 % (0.0-0.4); LYMPHOCYTES ABSOLUTE AUTO 1.8 K/mm3 (1.0-4.8); LYMPHOCYTES PERCENT AUTO 33.6 % (24.0-44.0); MEAN CORPUSCULAR HEMOGLOBIN 28.5 pg (28.0-32.0); MEAN CORPUSCULAR HGB CONC 33.9 g/dl (32.0-36.0); MEAN CORPUSCULAR VOLUME 84.3 fl (83.0-99.0); MEAN PLATELET VOLUME 9.5 fl (9.4-12.3); MONOCYTES ABSOLUTE AUTO 0.5 K/mm3 (0.0-0.8); MONOCYTES PERCENT AUTO 8.5 % (0.0-8.0); NEUTROPHILS ABSOLUTE AUTO 2.9 K/mm3 (1.8-7.7); NEUTROPHILS PERCENT AUTO 54.7 % (41.0-71.0); PLATELET COUNT,PLT 239 K/mm3 (150-400); RED BLOOD CELL COUNT 4.52 M/mm3 (4.10-5.30)
[2024-01-21 15:42] LABS: A/G RATIO 1.3 (1-2); ALBUMIN 3.5 g/dl (3.4-5.0); ANION GAP 11.9 (5-15); BILIRUBIN TOTAL 0.3 mg/dL (0.2-1.0); BUN/CREATININE RATIO 12.2 (14-18); CALCIUM 8.5 mg/dL (8.5-10.1); CREATININE 0.9 mg/dL (0.55-1.02); EST CRCL DRUG DOSING (CG) 83.74 mL/min; MAGNESIUM 1.9 mg/dL (1.8-2.4); POTASSIUM,K 3.9 mEq/L (3.5-5.1); PROTEIN TOTAL,TP 6.3 g/dl (6.4-8.2)
[2024-01-21 16:50] VITALS: BP 119/74; PULSE 69
== END 2024-01-21 16:55 | disposition home or self-care (01) ==
LOC: JD.ED 14:26
DX: R00.2 Palpitations (principal); R42 Dizziness and giddiness; Z86.16 Personal history of COVID-19; Z88.8 Allergy status to other drugs, medicaments and biological substances
CPT/HCPCS: 36415; 80053; 83735; 85025; 93005; 93246; 96360; 99285; J7030; 93010; 99284

== ENCOUNTER 2024-01-24 00:38 | Emergency (ER) | payer MEDICAID ==
[2024-01-24 00:45] VITALS: BP 151/91; PULSE 81
[2024-01-24] MEDS: Ketorolac 60 MG/2 ML SDV IM ONE (01:29)
[2024-01-24] MEDS: HYDROmorphone 0.5 MG/0.5 ML Syringe IM ONE (01:31)
== END 2024-01-24 01:40 ==
LOC: JD.ED 00:38
DX: K04.7 Periapical abscess without sinus (principal); Z86.16 Personal history of COVID-19; Z88.8 Allergy status to other drugs, medicaments and biological substances; Z79.899 Other long term (current) drug therapy
CPT/HCPCS: 96372; 99282; 99283; J1171; J1885

== ENCOUNTER 2024-01-26 21:13 | Emergency (ER) | payer MEDICAID ==
[2024-01-26 21:58] VITALS: BP 172/137; PULSE 91
[2024-01-26] MEDS ORDERED: Pantoprazole 40 MG Vial IVPUSH ONE (22:21)
[2024-01-26] MEDS ORDERED: Octreotide 500 MCG in Sodium Chloride 0.9% 499 ML IV SCH (22:30)
[2024-01-26] MEDS ORDERED: Pantoprazole 80 MG in Sodium Chloride 0.9% 100 ML IV SCH (22:30)
[2024-01-26] MEDS: Acetaminophen/HYDROcodone 325-5 MG Tab PO ONE (22:47)
== END 2024-01-26 22:30 | disposition home or self-care (01) ==
LOC: JD.ED 21:13
DX: S02.5XXA Fracture of tooth (traumatic), initial encounter for closed fracture (principal); Z86.16 Personal history of COVID-19; Z88.8 Allergy status to other drugs, medicaments and biological substances; Z79.899 Other long term (current) drug therapy; X58.XXXA Exposure to other specified factors, initial encounter
CPT/HCPCS: 99282; A9270; 99283

== ENCOUNTER 2024-03-03 22:56 | Emergency (ER) | payer MEDICAID ==
[2024-03-03 23:09] VITALS: BP 149/98; PULSE 86
== END 2024-03-04 00:57 | disposition home or self-care (01) ==
LOC: JD.ED 22:56
DX: K08.109 Complete loss of teeth, unspecified cause, unspecified class (principal); R09.A2 Foreign body sensation, throat; Z86.16 Personal history of COVID-19; Z88.8 Allergy status to other drugs, medicaments and biological substances; Z79.899 Other long term (current) drug therapy
CPT/HCPCS: 70360; 70360-26; 71045; 71045-26; 99283

== ENCOUNTER 2024-03-06 17:06 | Emergency (ER) | payer MEDICAID | END 2024-03-06 21:23 | disposition left against medical advice (07) | LOC: JD.ED 17:06 | DX: Z53.21 Procedure and treatment not carried out due to patient leaving prior to being seen by health care provider (principal) ==

== ENCOUNTER 2024-03-07 11:18 | Emergency (ER) | payer MEDICAID | END 2024-03-07 12:45 | disposition left against medical advice (07) | LOC: JD.ED 11:18 | DX: Z53.21 Procedure and treatment not carried out due to patient leaving prior to being seen by health care provider (principal) ==

== ENCOUNTER 2024-03-16 19:07 | Emergency (ER) | payer MEDICAID ==
[2024-03-16 19:51] VITALS: BP 123/82; PULSE 103
[2024-03-16] MEDS: cefTRIAXone 2 GM, Lidocaine 1% 4.2 ML IM ONE (20:25)
[2024-03-16] MEDS: Ketorolac 60 MG/2 ML SDV IM ONE (20:26)
== END 2024-03-16 21:06 | disposition home or self-care (01) ==
LOC: JD.ED 19:07
DX: K04.7 Periapical abscess without sinus (principal); K03.81 Cracked tooth; E66.9 Obesity, unspecified; F17.210 Nicotine dependence, cigarettes, uncomplicated; Z68.33 Body mass index [BMI] 33.0-33.9, adult; Z86.16 Personal history of COVID-19; Z88.8 Allergy status to other drugs, medicaments and biological substances; Z79.899 Other long term (current) drug therapy
CPT/HCPCS: 96372; 99282; J0696; J1885; J3490

== ENCOUNTER 2024-03-23 01:13 | Emergency (ER) | payer MEDICAID ==
[2024-03-23] MEDS: Ketorolac 30 MG/ML SDV IM ONE (02:18)
[2024-03-23 02:25] VITALS: BP 131/59; PULSE 73
== END 2024-03-23 02:24 | disposition home or self-care (01) ==
LOC: JD.ED 01:13
DX: K02.9 Dental caries, unspecified (principal); F17.210 Nicotine dependence, cigarettes, uncomplicated; Z88.8 Allergy status to other drugs, medicaments and biological substances; Z79.899 Other long term (current) drug therapy; Z86.16 Personal history of COVID-19
CPT/HCPCS: 96372; 99282; J1885

== ENCOUNTER 2024-04-18 15:21 | Emergency (ER) | payer MEDICAID ==
[2024-04-18 15:32] VITALS: BP 142/78; PULSE 83
== END 2024-04-18 16:45 | disposition home or self-care (01) ==
LOC: JD.ED 15:21
DX: K08.89 Other specified disorders of teeth and supporting structures (principal); F17.210 Nicotine dependence, cigarettes, uncomplicated; Z88.8 Allergy status to other drugs, medicaments and biological substances; Z79.899 Other long term (current) drug therapy; Z86.16 Personal history of COVID-19
CPT/HCPCS: 99282

== ENCOUNTER → 2025-02-02 13:54 | Emergency (ER) | payer MEDICAID | END | disposition left against medical advice (07) | LOC: JD.ED 13:54 | DX: Z53.21 Procedure and treatment not carried out due to patient leaving prior to being seen by health care provider (principal) ==